=== PATIENT | male | born 1990 | race Hispanic/Latino ===

== ENCOUNTER 2017-12-22 10:01 | Emergency (ER) | payer OTHER ==
[2017-12-22 10:08] VITALS: BMI 36.1
[2017-12-22 10:10] VITALS: BP 144/90; PULSE 71; RESP 17; TEMP 97.7; O2SAT 97
--- NOTE | 2017-12-22 10:54 | ED PDOC ---
HPI: Back Additional Complaint(s): 27 YO obese Male who has had bck problems since 2011, presents to the ED for worsening back pain radiating down his left leg. One month ago patient was an heavy item at home which exacerbated his back pain. He controlled the pain with Motrin. On wednesday patient was lifting a box at home, when he noted his back has gotten worse. He went to an urgent care on wednesday, which gave him a shot of toradol and muscle relaxants in the clinc. He was discharged on PO steroids Ibuprophen and muscle relaxants. Pain was contolled with the regimine untill this morining when he was getting ready for work, and pain was intolerable, when he decided to come to the ER. Denies any previous imaging of his back. Denies any problems with urination, defecation motor, sensation or perineal numbness. He last took motrin 600mg 2 hours before coming to the ER. PMH:None PSH: Appendectomy 2006, Shoulder surgery: 2009 Allergies:Erythromycin: rash Hospitalizations: Concussion x3: 2009, 2008, 2007 PMD: Stanislav Brandt <Dharmesh Bond - Last Filed: 12/22/17 14:26> <Wendy Bernal - Last Filed: 12/22/17 15:44> Time Seen by Provider: 12/22/17 10:35 Chief Complaint (Nursing): Back Pain Past Medical History Vital Signs: Last Vital Signs Temp 97.7 F 12/22/17 10:08 Pulse 71 12/22/17 10:08 Resp 17 12/22/17 10:08 BP 144/90 12/22/17 10:08 Pulse Ox 97 12/22/17 10:08 - Medical History PMH: Back Problems - Surgical History Surgical History: Appendectomy Other surgeries: shoulder surgery - Family History Family History: States: No Known Family Hx - Social History Current smoker - smoking cessation education provided: No Ex-Smoker (has not smoked in the last 12 months): No Alcohol: Occasional Drugs: Cannabis <Dharmesh Bond - Last Filed: 12/22/17 14:26> Reviewed: Historical Data, Nursing Documentation, Vital Signs Vital Signs: Last Vital Signs Temp 97.7 F 12/22/17 10:08 Pulse 71 12/22/17 10:08 Resp 17 12/22/17 10:08 BP 144/90 12/22/17 10:08 Pulse Ox 97 12/22/17 14:27 <GabeWendy - Last Filed: 12/22/17 15:44> - Home Medications Home Medications: Ambulatory Orders Medication Instructions Recorded Naproxen 500 mg PO BID #20 ect 12/22/17 traMADol [Ultram] 50 mg PO TID PRN #15 tab 12/22/17 - Allergies Allergies/Adverse Reactions: Allergies Allergy/AdvReac Type Severity Reaction Status Date / Time erythromycin base Allergy RASH Verified 12/22/17 10:29 Supervising Attending Note - Supervising Attending Note The Documented history was done by the: Physician Accounting Recruiter, Attending Physician The documented physical exam was done by the: Physician Accounting Recruiter, Attending Physician The documented procedures were done by the: Physician Accounting Recruiter, Attending Physician - Attestation: I have personally seen and examined this patient.: Yes I have fully participated in the care of the patient.: Yes I have reviewed all pertinent clinical information: Yes <GabeElliottdigna Sarabia - Last Filed: 12/22/17 15:44> Review of Systems ROS Statement: Except As Marked, All Systems Reviewed And Found Negative <GabeElliottdigna Cornell - Last Filed: 12/22/17 15:44> Physical Exam - Physical Exam Appears: Positive for: Uncomfortable Head Exam: Positive for: NORMAL INSPECTION Skin: Positive for: Normal Color, Warm Cardiovascular/Chest: Positive for: Regular Rate, Rhythm Respiratory: Positive for: Normal Breath Sounds. Negative for: Crackles, Rales Back: Positive for: Other (left sided paravertabral tenderness in lumbar region. 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 No vertebral fracture on space narrowing noted. Morphine 4 mg x1 Tylenol 975mg x 1 Reasess: Patient doing better F/U w/ PMD in 2-3 days for further work up <Dharmesh Bond - Last Filed: 12/22/17 14:26> Disposition - Patient ED Disposition Is Patient to be Admitted: No - Disposition Disposition: Routine/Home Disposition Time: 14:26 <Dharmesh Bond - Last Filed: 12/22/17 14:26> Counseled Patient/Family Regarding: Studies Performed, Diagnosis, Need For Followup <Wendy Bernal - Last Filed: 12/22/17 15:44> - Clinical Impression Clinical Impression: Back pain - Disposition [facility]errals: [facility]] Condition: GOOD Additional Instructions: Take your medications as instructed. Follow up with your PCP in 2-3 days. Prescriptions: Naproxen 500 mg PO BID #20 ect traMADol [Ultram] 50 mg PO TID PRN #15 tab PRN Reason: Pain, Severe (8-10) Instructions: Low Back Pain (DC)
--- NOTE | 2017-12-22 10:57 | RAD ---
PROCEDURE: Radiographs of the Lumbar Spine. HISTORY: sciatica/ back pain COMPARISON: No prior. FINDINGS: BONES: Normal alignment. No listhesis. No fracture. DISC SPACES: Unremarkable. OTHER FINDINGS: None. IMPRESSION: Unremarkable radiographs of the lumbar spine.
== END 2017-12-22 13:42 | disposition home or self-care (01) ==
LOC: H.ER 10:01
DX: M54.9 Dorsalgia, unspecified (principal); Z87.891 Personal history of nicotine dependence; Z88.1 Allergy status to other antibiotic agents